=== PATIENT | female | born 2000 | race Caucasian/White ===

== ENCOUNTER 2018-02-22 11:11 | Emergency (ER) | payer BC ==
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
[2018-02-22] MEDS ORDERED: Sodium Chloride 0.9% 10 ML Syringe FLUSH PRN (11:18)
[2018-02-22] MEDS ORDERED: Sodium Chloride 0.9% 2.5 ML Syringe FLUSH PRN (11:18)
[2018-02-22 12:00] LABS: CHLORIDE,CL 105 mmol/L (98-107); SODIUM,NA 140 mmol/L (136-145)
--- NOTE | 2018-02-22 12:11 | CT ---
EXAMINATION: Non contrast CT head. Coronal and sagittal reformats. HISTORY: Pain FINDINGS: No evidence of intra or extra axial hemorrhage, mass, midline shift, hydrocephalus or edema. No hypoattenuation changes in the major vascular territories to suggest acute infarct. No abnormal intracranial calcifications are detected. No evidence of substantial vascular calcificat ions. Tiny mucous retention cyst within the right maxillary sinus. Mastoid air cells are clear. Orbits and globes are symmetric. Pituitary fossa appears unremarkable. Calvarium is intact. No evidence of skull fracture. IMPRESSION: No acute intracranial findings.
--- NOTE | 2018-02-22 12:31 | CT ---
EXAMINATION: CT cervical spine HISTORY: Pain COMPARISON: None TECHNIQUE: Axial CT images obtained through the cervical spine without contrast. Coronal and sagittal reconstructions obtained. FINDINGS: The cervical spinal alignment is normal. The vertebral body heights and disc spaces appear well-maintained. Bone mineralization is normal. No fracture or acute osseous abdomen. Borderline cerv ical chain lymph nodes noted bilaterally measuring up to 1 cm, likely reactive. The lung apices are c lear. IMPRESSION: No acute cervical spinal abnormalities.
[2018-02-22] MEDS ORDERED: Ketorolac 30 MG/ML SDV IVPUSH ONE (12:35)
[2018-02-22 12:49] VITALS: BP 100/73
== END 2018-02-22 13:06 | disposition home or self-care (01) ==
LOC: MW.ED 11:11
DX: S16.1XXA Strain of muscle, fascia and tendon at neck level, initial encounter (principal); J45.909 Unspecified asthma, uncomplicated; V48.6XXA Car passenger injured in noncollision transport accident in traffic accident, initial encounter; Z88.5 Allergy status to narcotic agent; Z79.899 Other long term (current) drug therapy
CPT/HCPCS: 36415; 70450; 72125; 80053; 80305; 81001; 85025; 87086; 96374; 99284; J1885

== ENCOUNTER 2021-01-18 18:54 | Emergency (ER) | payer OTHER ==
[2021-01-18] MEDS ORDERED: Morphine 4 MG/ML Syringe IVPUSH ONE (18:58)
[2021-01-18 19:25] LABS: BLOOD UREA NITROGEN,BUN 15 mg/dL (7.0-18.0); CARBON DIOXIDE,CO2 25.8 mmol/L (21.0-32.0); CHLORIDE,CL 103 mmol/L (98-107); GLUCOSE RANDOM 110 mg/dL (74-106); POTASSIUM,K 3.5 mmol/L (3.5-5.1); SODIUM,NA 136 mmol/L (136-145)
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
[2021-01-18] MEDS ORDERED: Ibuprofen 600 MG Tab PO ONE (20:52)
[2021-01-18] MEDS ORDERED: Cyclobenzaprine 10 MG Tab PO ONE (20:52)
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
[2021-01-18 21:33] VITALS: BP 107/72; PULSE 96
== END 2021-01-18 21:30 | disposition home or self-care (01) ==
LOC: MW.ED 18:54
DX: S09.90XA Unspecified injury of head, initial encounter (principal); S70.12XA Contusion of left thigh, initial encounter; S20.219A Contusion of unspecified front wall of thorax, initial encounter; S00.81XA Abrasion of other part of head, initial encounter; J45.909 Unspecified asthma, uncomplicated; Z88.5 Allergy status to narcotic agent; V48.5XXA Car driver injured in noncollision transport accident in traffic accident, initial encounter
CPT/HCPCS: 36415; 70450; 71045; 72125; 72170; 73552; 80053; 84703; 85025; 96374; 99284; A9270; J2270

== ENCOUNTER 2022-01-23 01:04 | Emergency (ER) | payer BC ==
[2022-01-23 01:56] LABS: BLOOD UREA NITROGEN,BUN 17 mg/dL (7.0-18.0); CARBON DIOXIDE,CO2 24.4 mmol/L (21.0-32.0); CHLORIDE,CL 102 mmol/L (98-107); GLUCOSE RANDOM 111 mg/dL (74-106); POTASSIUM,K 3.2 mmol/L (3.5-5.1); SODIUM,NA 139 mmol/L (136-145)
[2022-01-23] MEDS ORDERED: Amoxicillin/Clavulanate K 875-125 MG Tab PO ONE (02:01)
[2022-01-23] MEDS ORDERED: Iopamidol 755 MG/ML 500 ML Multipack Bottle IVPUSH ONE (02:47)
[2022-01-23 04:35] VITALS: BP 134/81; PULSE 91
== END 2022-01-23 04:43 | disposition home or self-care (01) ==
LOC: MW.ED 01:04
DX: S20.462A Insect bite (nonvenomous) of left back wall of thorax, initial encounter (principal); R09.89 Other specified symptoms and signs involving the circulatory and respiratory systems; E66.9 Obesity, unspecified; Z68.30 Body mass index [BMI] 30.0-30.9, adult; Z79.899 Other long term (current) drug therapy; Z88.5 Allergy status to narcotic agent; Y04.1XXA Assault by human bite, initial encounter
CPT/HCPCS: 36415; 70486; 70498; 72125; 80053; 84703; 85025; 99284; A9270; Q9967

== ENCOUNTER 2025-05-08 17:54 | Emergency (ER) | payer BC ==
[2025-05-08 18:29] VITALS: BP 130/75; PULSE 83
[2025-05-08 18:47] LABS: APPEARANCE,URINE CLEAR; GLUCOSE,URINE NEGATIVE (NEGATIVE); OCCULT BLOOD,URINE NEGATIVE (NEGATIVE)
[2025-05-08 20:03] LABS: CANDIDA DNA PROBE NEGATIVE (NEGATIVE); GARDNERELLA DNA PROBE POSITIVE (NEGATIVE); TRICHOMONAS DNA PROBE NEGATIVE (NEGATIVE)
[2025-05-08 20:52] LABS: C. TRACHOMATIS BY PCR NOT DETECTED; N. GONORRHOEAE BY PCR NOT DETECTED
== END 2025-05-08 20:16 | disposition home or self-care (01) ==
LOC: MW.ED 17:54
DX: N76.0 Acute vaginitis (principal); J45.909 Unspecified asthma, uncomplicated; E66.9 Obesity, unspecified; Z88.5 Allergy status to narcotic agent; Z79.899 Other long term (current) drug therapy
CPT/HCPCS: 81003; 81025; 87480; 87491; 87510; 87591; 87660; 99283